=== PATIENT | female | born 1930 | race Two or more races ===

== ENCOUNTER 2016-10-29 16:43 | Inpatient (IN) | payer MEDICARE, OTHER ==
[~2016-10-29] VITALS: Ht 160 cm; Wt 62.1 kg
--- NOTE | 2016-10-29 16:45 | NUR ---
Pt roe from [facility] for increased aloc today. gowned pt. Awaiting md order. Placed on monitor. Lt wrist #20 iv access LICENSED OCCUPATIONAL THERAPY ASSISTANT
[2016-10-29] MEDS ORDERED: ACETAMINOPHEN 650 MG/SUPP.RECT RC ONE ×2 (16:54→17:00)
[2016-10-29] MEDS ORDERED: IV SET PRIMARY PUMP SET 1 EA INFUS.SET MC ONE ×3 (16:54→20:20)
[2016-10-29] MEDS ORDERED: IV NS 0.9% 1,000 ML ONE ×2 (16:54→17:59)
--- NOTE | 2016-10-29 16:54 | NUR ---
MANAGER MOTOR AT BEDSIDE FOR BLOOD DRAW
--- NOTE | 2016-10-29 16:55 | NUR ---
ONLINE MARKETING ANALYST AT BEDSIDE
[2016-10-29] MEDS ORDERED: IV NS 0.9% 1,000 ML BAG IV ONE ×2 (17:00→18:30)
--- NOTE | 2016-10-29 17:20 | NUR ---
URINE SAMPLE COLLECTED SENT TO LAB
[2016-10-29 17:24] LABS: EOSINOPHILS % (AUTO) 0.7 % (0.0-6.0); HEMATOCRIT 37 % (39-51); HEMOGLOBIN 12.5 g/dL (13.5-17.5); LYMPHOCYTES % (AUTO) 2.3 % (20.0-44.0); MEAN CORPUSCULAR HEMOGLOBIN 30 PG (26.0-33.0); MEAN CORPUSCULAR HGB CONC 34 g/dl (31.0-36.0); MEAN CORPUSCULAR VOLUME 89 fL (80-96); MONOCYTES % (AUTO) 0.1 % (2.0-12.0); NEUTROPHILS % (AUTO) 96.9 % (43.0-81.0); PLATELET COUNT (AUTO) 117 /CMM (150-450); RDW COEFFICIENT OF VARIATION 13.2 (11.5-15.0); RED BLOOD CELL COUNT(AUTO) 4.14 MIL/uL (4.5-6.0); WHITE BLOOD COUNT (AUTO) 16.3 K/uL (4.3-11.0)
[2016-10-29 17:25] LABS: EOSINOPHILS # (AUTO) 0.1 /CMM (0.0-0.7); LYMPHOCYTES # (AUTO) 0.4 /CMM (0.8-4.8); NEUTROPHILS # (AUTO) 15.8 /CMM (1.8-8.9)
[2016-10-29 17:27] LABS: CARBON DIOXIDE 19 mmol/L (21-32); CHLORIDE 106 mmol/L (98-107); CREATININE 1.8 mg/dL (0.6-1.3); GLUCOSE 161 mg/dL (74-106); POTASSIUM 3.8 mmol/L (3.5-5.1); SODIUM SERUM 139 mmol/L (136-145); UREA NITROGEN, BLOOD 35 mg/dL (7-18)
[2016-10-29 17:32] LABS: ALANINE AMINOTRANSFERASE 20 U/L (12-78); ALBUMIN 2.7 g/dL (3.4-5.0); ALKALINE PHOSPHATASE 203 U/L (46-116); ASPARTATE AMINOTRANSFERASE 27 U/L (15-37); BILIRUBIN,DIRECT 0.4 mg/dL (0.0-0.2); TOTAL PROTEIN, SERUM 5.9 g/dL (6.4-8.2)
--- NOTE | 2016-10-29 17:33 | NUR ---
CALLED NURSING SUP. FOR ROBBIN BED
[2016-10-29 17:36] LABS: TROPONIN I 0.066 ng/mL (0.00-0.056)
[2016-10-29 17:40] LABS: INR 1.49 (0.87-1.13); PROTHROMBIN TIME 16.3 SECS (9.5-12.7)
[2016-10-29 17:41] LABS: APPEARANCE,URINE Turbid (CLEAR); BILIRUBIN,URINE Negative (NEGATIVE); BLOOD, URINE Moderate Ery/uL (NEGATIVE); COLOR,URINE Yellow (YELLOW); KETONES,URINE Negative (NEGATIVE); LEUKOCYTE ESTERASE ,URINE Small (NEGATIVE); NITRITE, URINE Positive (NEGATIVE); PROTEIN,URINE 100 mg/dl (NEGATIVE); UGLUCOSE Negative (NEGATIVE)
[2016-10-29 17:48] LABS: RBC,URINE B /HPF (0-2)
[2016-10-29 17:49] LABS: BACTERIA,URINE Many /HPF (None Seen); SQUAMOUS EPITHELIAL CELL,UR FEW /HPF (None Seen)
--- NOTE | 2016-10-29 17:53 | NUR ---
CALLED , LEFT MESSAGE ON VOICEMAIL
[2016-10-29] MEDS ORDERED: CEFTRIAXONE 1GM BAG (ER ONLY) 50 ML IV ONE ×2 (17:58→18:00)
[2016-10-29] MEDS ORDERED: IV SET PRIMARY 1 EA INFUS.SET MC ONE (17:59)
[2016-10-29] MEDS ORDERED: POTA20TA83 PO (18:02)
[2016-10-29] MEDS ORDERED: DOCU-25 PO (18:02)
[2016-10-29] MEDS ORDERED: NA P133E RC (18:02)
[2016-10-29] MEDS ORDERED: BISA10SU8 RC (18:02)
[2016-10-29] MEDS ORDERED: IPRA3AMP NEB (18:02)
[2016-10-29] MEDS ORDERED: FURO-145 PO (18:02)
[2016-10-29] MEDS ORDERED: MAGN400O6 PO (18:02)
--- NOTE | 2016-10-29 18:19 | NUR ---
GAVE REPORT TO BISMARK DYSON ROBBIN . DR PRINCE ADMITTING. DX SEPSIS WITH UTI. TRANSFER VIA ACLS PROTOCOL.
--- NOTE | 2016-10-29 18:27 | NUR ---
IV INFUSING DURING TRASNSFER
[2016-10-29] MEDS ORDERED: FEE PK DOSING 1 MIN EA MC ONE (18:52)
[2016-10-29] MEDS ORDERED: ONDANSETRON HCL/PF 4 MG/2 ML VIAL IV PRN (19:00)
[2016-10-29] MEDS ORDERED: ACETAMINOPHEN 650 MG/SUPP.RECT RC PRN (19:00)
[2016-10-29 19:11] VITALS: BP 111/38
--- NOTE | 2016-10-29 19:16 | NUR ---
ROBBIN RN NOTE RECEIVED PATIENT FRO ER WITH DX UTI ,SEPSIS, ALERT TO SELF, FAMILY AT BEDSIDE , PLACED ON TELE MONITOR ST 118 , BP TAKEN , ALL NEEDS ATTENDED , HOSPITAL,ORIENTATION DONE, BED IN ,LOWEST AND ,LOCKED POSITIONS , ADMISSION ORDERS CARRIED OUT,FAXED TO,PHARMACY , PLACED ON O2 SAT 95% WILL ENDORSE CARE TO NEXT SHIFT RN
[2016-10-29] MEDS: PANTOPRAZOLE 40 MG VIAL IV SCH (19:46)
[2016-10-29 20:00] VITALS: BP 81/42
[2016-10-29 20:06] VITALS: BP 81/42
[2016-10-29] MEDS: ZOSYN IVPB 3.375 G in IV D5W 50ml IV SCH (20:21)
[2016-10-29] MEDS: VANCOMYCIN 500 MG in IV D5W 100 ML IV SCH (20:21)
[2016-10-29] MEDS: IV NS 0.9% 1,000 ML IV PRN (20:22)
[2016-10-29] MEDS ORDERED: IV NS 0.9% 500 ML IV ONE ×2 (20:30)
[2016-10-29] MEDS ORDERED: IV NS 0.9% 500 ML IV PRN (21:00)
[2016-10-29] MEDS ORDERED: ENOXAPARIN SODIUM 30 MG/0.3 ML DISP.SYRIN SQ SCH (21:00)
--- NOTE | 2016-10-29 21:35 | NUR ---
RN;TD: PT RECEIVED FROM ED FOR SEPSIS SECONDARY TO UTI. PT BP LOW 80'S. SPOKE WITH MD REGARDING PT CODE STATUS DNR/DNI AND LOW BP. NEW ORDERS FOR 500 ML NS BOLUS, MAY REPEAT X 1 IF BP REMAINS LOW. NEW IV INSERTED RIGHT FA 22 GAUGE. SPOKE WITH FAMILY REGARDING POC AND CODE STATUS. SKIN INTACT. FALL AND ASPIRATION PRECAUTIONS IN PLACE. O2 PLACED ON AT 2L. FC INSERTED PER MD ORDERS WITH MINIMAL CALDERON URINE OUTPUT. WILL CONTINUE TO MONITOR CLOSELY. PATIENTS DAUGHTER PHONE NUMBER [phone], .
[2016-10-29 22:00] VITALS: BP 98/44
--- NOTE | 2016-10-29 22:00 | NUR ---
RN;TD: PT BP RESPONDED WELL TO FIRST BOLUS. SBP 98. WILL CONTINUE TO MONITOR CLOSELY.
[2016-10-30] VITALS (7 sets, daily range): BP systolic 83–116; BP diastolic 44–59
--- NOTE | 2016-10-30 00:02 | NUR ---
RN:TD: PT BP 60'S THEN 80'S WHEN RECHECKED. SECOND BOLUS GIVEN PER MD ORDERS. WILL REASSESS BP AFTER BOLUS INFUSED.
--- NOTE | 2016-10-30 01:00 | NUR ---
RN;TD: PT BP RETURNED TO NORMAL 90'S. U/O REMAINS LOW, MD AWARE. RIGHT FA IV SITE REMAINS INTACT. RIGHT FA BRUISE DOCUMENTED IN SKIN ASSESSMENT PORTION OF ROBBIN FLOW SHEET. PICTURES TAKEN. OTHERWISE SKIN INTACT.
[2016-10-30] MEDS: ZOSYN IVPB 3.375 G in IV D5W 50ml IV SCH ×2 (01:13→07:50)
[2016-10-30] MEDS: IV NS 0.9% 1,000 ML IV PRN ×3 (01:14→17:11)
--- NOTE | 2016-10-30 07:20 | NUR ---
RN INITIAL NOTES PT IN BED, ADVANCED DEMENTIA, PT OPENS EYES BUT DOES NOT RESPOND, WITHDRAWS TO PAIN. ON NC 3L, TOLERATING WELL, ON TELE MONITOR WITH ST 119, NO SIGNS OF DISTRESS NOTED. PT HAS F/C DRAINING CLEAR YELLOW URINE. PT HAS A RFA BRUISE, OPEN TO AIR. PT IS NPO D/T AMS. IV ON RFA 22G RUNNING NS @ 125 CC/HR, TOLERATING WELL; LEFT WRIST 20G CDI, NO SIGNS OF INFECTION/INFILTRATION. CALL LIGHT WITHIN EASY REACH, SAFETY MEASURES MAINTAINED, WILL CONTINUE TO MONITOR AND FOLLOW MD ORDERS. PT IN OVERALL STABLE CONDITION. Addendum: 10/30/16 at 1504 by ISAAK RIVERS RN NOTES AMENDED: F/C DRAINING DARK CALDERON URINE.
[2016-10-30 07:29] LABS: HEMATOCRIT 34 % (33-45); HEMOGLOBIN 11.3 g/dL (11.5-14.8); LYMPHOCYTES # (AUTO) 1.3 /CMM (0.8-4.8); LYMPHOCYTES % (AUTO) 4.2 % (20.0-44.0); MEAN CORPUSCULAR HEMOGLOBIN 30 PG (26.0-33.0); MEAN CORPUSCULAR HGB CONC 34 g/dl (31.0-36.0); MEAN CORPUSCULAR VOLUME 91 fL (82-100); MONOCYTES # (AUTO) 1.6 /CMM (0.1-1.30); NEUTROPHILS # (AUTO) 28.9 /CMM (1.8-8.9); NEUTROPHILS % (AUTO) 90.8 % (43.0-81.0); PLATELET COUNT (AUTO) 97 /CMM (150-450); RDW COEFFICIENT OF VARIATION 13.6 (11.5-15.0); RED BLOOD CELL COUNT(AUTO) 3.74 MIL/uL (4.0-5.2)
[2016-10-30 07:34] LABS: WHITE BLOOD COUNT (AUTO) 31.8 K/uL (4.3-11.0)
--- NOTE | 2016-10-30 07:39 | NUR ---
RN NOTES DR. PRINCE IS AWARE OF PTS WBC COUNT. NO NEW ORDERS.
[2016-10-30] MEDS ORDERED: SECONDARY IV SET 1 EA INFUS.SET MC ONE ×2 (07:44→20:48)
[2016-10-30 08:17] LABS: ALANINE AMINOTRANSFERASE 20 U/L (12-78); ALBUMIN 2.2 g/dL (3.4-5.0); ALKALINE PHOSPHATASE 62 U/L (46-116); ASPARTATE AMINOTRANSFERASE 31 U/L (15-37); BILIRUBIN,TOTAL 0.5 mg/dL (0.2-1.0); CALCIUM, SERUM 7.7 mg/dL (8.5-10.1); CARBON DIOXIDE 17 mmol/L (21-32); CHLORIDE 112 mmol/L (98-107); CREATININE 1.9 mg/dL (0.6-1.3); GLUCOSE 104 mg/dL (74-106); POTASSIUM 4.3 mmol/L (3.5-5.1); SODIUM SERUM 143 mmol/L (136-145); TOTAL PROTEIN, SERUM 5.3 g/dL (6.4-8.2); UREA NITROGEN, BLOOD 36 mg/dL (7-18)
[2016-10-30 08:48] LABS: BAND % (MANUAL) 12 % (0.0-5.0); LYMPHOCYTES % (MANUAL) 8 % (16-48); MONOCYTES % (MANUAL) 5 % (0-11.0); NEUTROPHILS % (MANUAL) 75 (42-76)
[2016-10-30] MEDS: ZOSYN IVPB 2.25 G in IV D5W 50ml IV SCH ×3 (12:55→23:58)
--- NOTE | 2016-10-30 15:14 | NUR ---
RN NOTES MD MADE AWARE OF PTS URINE CHANGING FROM DARK CALDERON TO BLOOD, ORDER GIVEN TO HOLD/DC LOVENOX. OVERALL PT IN STABLE CONDITION.
[2016-10-30] MEDS: PANTOPRAZOLE 40 MG VIAL IV SCH (18:00)
--- NOTE | 2016-10-30 19:06 | NUR ---
RN CLOSING NOTES PT IN STABLE CONDITION, ALL MD ORDERS CARRIED OUT, TOLERATING NC 3L WELL, IV'S CDI, NO SIGNS OF INFECTION/INFECTION. CALL LIGHT WITHIN EASY REACH, SAFETY MEASURES MAINTAINED, REPORT GIVEN TO NIGHT NURSE FOR DENA. Addendum: 10/30/16 at 1909 by ISAAK RIVERS RN F/C STILL DRAINING BLOODY URINE.
--- NOTE | 2016-10-30 20:00 | NUR ---
RN INITIAL NOTES PT IN BED, ADVANCED DEMENTIA, PT OPENS EYES BUT DOES NOT RESPOND, WITHDRAWS TO PAIN. ON NC 3L, TOLERATING WELL, ON TELE MONITOR WITH ST 108, NO SIGNS OF DISTRESS NOTED. PT HAS F/C DRAINING DARK CALDERON URINE. PT HAS A RFA BRUISE, OPEN TO AIR. PT IS NPO D/T AMS. IV ON RFA 22G RUNNING NS @ 125 CC/HR, TOLERATING WELL; LEFT WRIST 20G CDI, NO SIGNS OF INFECTION/INFILTRATION. CALL LIGHT WITHIN EASY REACH, SAFETY MEASURES MAINTAINED, WILL CONTINUE TO MONITOR AND FOLLOW MD ORDERS. PT IN OVERALL STABLE CONDITION.
[2016-10-30] MEDS: VANCOMYCIN 500 MG in IV D5W 100 ML IV SCH (20:50)
[2016-10-31] VITALS (11 sets, daily range): BP systolic 103–153; BP diastolic 49–75
[2016-10-31] MEDS: IV NS 0.9% 1,000 ML IV PRN ×2 (03:42→13:16)
[2016-10-31] MEDS: ZOSYN IVPB 2.25 G in IV D5W 50ml IV SCH ×3 (05:11→17:02)
[2016-10-31 06:59] LABS: CALCIUM, SERUM 8.4 mg/dL (8.5-10.1); CARBON DIOXIDE 17 mmol/L (21-32); CHLORIDE 115 mmol/L (98-107); CREATININE 1.6 mg/dL (0.6-1.3); GLUCOSE 68 mg/dL (74-106); POTASSIUM 3.8 mmol/L (3.5-5.1); SODIUM SERUM 145 mmol/L (136-145); UREA NITROGEN, BLOOD 31 mg/dL (7-18)
--- NOTE | 2016-10-31 07:44 | NUR ---
ADVANCE AGENT INITIAL NOTES PT IN BED RESTING, ADVANCED DEMENTIA, PT OPENS EYES SPONTANEOUSLY BUT DOES NOT RESPOND, WITHDRAWS TO PAIN. ON NC 3L, TOLERATING WELL, ON TELE MONITOR, NO SIGNS OF DISTRESS NOTED. PT HAS F/C DRAINING CALDERON URINE. PT HAS A RIGHT FOREARM BRUISE, OPEN TO AIR. IV ON RFA 22G ; LEFT WRIST 20G, NO SIGNS OF INFECTION/INFILTRATION. CALL LIGHT WITHIN EASY REACH, SAFETY MEASURES MAINTAINED, WILL CONTINUE TO MONITOR AND FOLLOW MD ORDERS. PT IN OVERALL STABLE CONDITION.
[2016-10-31] MEDS: ALBUTEROL FS 2.5 MG/3 ML VIAL.NEB NEB PRN ×3 (11:37→23:46)
[2016-10-31] MEDS: IPRATROPIUM NEB FS 0.5 MG/2.5 ML AMPUL.NEB NEB PRN ×3 (11:37→23:46)
[2016-10-31] MEDS: PANTOPRAZOLE 40 MG VIAL IV SCH (18:04)
--- NOTE | 2016-10-31 18:42 | NUR ---
PARA MACHINE OPERATOR CLOSING NOTES PT IN STABLE CONDITION, ALL MD ORDERS CARRIED OUT, TOLERATING NC 3L WELL, IV CLEAN DRY AND INTACT 60 ML/HR NS. NO SIGNS OF INFECTION/INFECTION. CALL LIGHT WITHIN EASY REACH, SAFETY MEASURES MAINTAINED, REPORT GIVEN TO NIGHTSHIFT NURSE FOR CONTINUATION OF CARE
[2016-10-31] MEDS: VANCOMYCIN 500 MG in IV D5W 100 ML IV SCH (20:16)
[2016-10-31] MEDS: LORAZEPAM INJ 2 MG/ML VIAL IV PRN (20:48)
--- NOTE | 2016-10-31 21:33 | NUR ---
RN:TD: PT FAMILY MEMBER REQUESTED THAT PT RECEIVE BREATHING TX. PT HAS WHEEZES AND MILD TACHYPNEA. PT RESTLESS IN BED AND FAMILY REQUESTING THAT SHE RECEIVE MEDICATION TO CALM HER DOWN. D/W DR PRINCE REGARDING RESTLESSNESS, NEW ORDERS FOR ATIVAN RECEIVED. PT GIVEN 0.5 MG ATIVAN IV PER MD ORDERS. WILL CONTINUE TO MONITOR CLOSELY.
[2016-11-01] VITALS (7 sets, daily range): BP systolic 125–153; BP diastolic 56–91
[2016-11-01] MEDS: ZOSYN IVPB 2.25 G in IV D5W 50ml IV SCH ×2 (00:07→05:22)
[2016-11-01] MEDS: IV NS 0.9% 1,000 ML IV PRN (04:45)
[2016-11-01] MEDS: LORAZEPAM INJ 2 MG/ML VIAL IV PRN ×2 (05:27→19:46)
[2016-11-01] MEDS: ALBUTEROL FS 2.5 MG/3 ML VIAL.NEB NEB PRN ×2 (05:32→20:31)
[2016-11-01] MEDS: IPRATROPIUM NEB FS 0.5 MG/2.5 ML AMPUL.NEB NEB PRN ×2 (05:32→20:31)
--- NOTE | 2016-11-01 05:43 | NUR ---
RN:TD: PT NOTED TO BE RESTLESS AND WHEEZING. ATIVAN GIVEN PER MD ORDERS AND RT ADMIN BREATHING TX. WILL ENDORSE TO ONCOMING SHIFT. O2 SAT 95%.
[2016-11-01 06:26] LABS: MEAN CORPUSCULAR HEMOGLOBIN 30 PG (26.0-33.0); MEAN CORPUSCULAR HGB CONC 34 g/dl (31.0-36.0); RDW COEFFICIENT OF VARIATION 13.9 (11.5-15.0)
[2016-11-01 06:28] LABS: BASOPHILS % (AUTO) 0.1 % (0.0-2.0); EOSINOPHILS # (AUTO) 0.4 /CMM (0.0-0.7); EOSINOPHILS % (AUTO) 1.7 % (0.0-6.0); HEMATOCRIT 33 % (33-45); LYMPHOCYTES # (AUTO) 1.1 /CMM (0.8-4.8); LYMPHOCYTES % (AUTO) 4.2 % (20.0-44.0); MEAN CORPUSCULAR VOLUME 89 fL (82-100); MONOCYTES # (AUTO) 0.7 /CMM (0.1-1.30); MONOCYTES % (AUTO) 2.9 % (2.0-12.0); NEUTROPHILS # (AUTO) 22.9 /CMM (1.8-8.9); NEUTROPHILS % (AUTO) 91.1 % (43.0-81.0); PLATELET COUNT (AUTO) 101 /CMM (150-450); RED BLOOD CELL COUNT(AUTO) 3.68 MIL/uL (4.0-5.2); WHITE BLOOD COUNT (AUTO) 25.1 K/uL (4.3-11.0)
[2016-11-01 06:45] LABS: CALCIUM, SERUM 8.9 mg/dL (8.5-10.1); CARBON DIOXIDE 17 mmol/L (21-32); CHLORIDE 115 mmol/L (98-107); CREATININE 1.7 mg/dL (0.6-1.3); GLUCOSE 88 mg/dL (74-106); POTASSIUM 3.2 mmol/L (3.5-5.1); SODIUM SERUM 146 mmol/L (136-145); UREA NITROGEN, BLOOD 31 mg/dL (7-18)
[2016-11-01] MEDS ORDERED: LEVOFLOXACIN 500 MG /D5W 100ML 500 MG in PREMIX 1 EA IV SCH (09:00)
[2016-11-01] MEDS ORDERED: FUROSEMIDE 20 MG/2 ML VIAL IV ONE (09:00)
[2016-11-01] MEDS: CEFAZOLIN IV SCH ×2 (09:54→20:19)
[2016-11-01] MEDS: D5W IV SCH ×2 (09:54→20:19)
--- NOTE | 2016-11-01 09:55 | NUR ---
ROBBIN RN NOTE 0720: Received patient lethargic. Noted making sound, noted with crackles and wheezes during auscultation. On 3LPM of O2 via NC tolerated, kept HOB elevated. With PIVs intact. IVF infusing as ordered. Remained NPO, awaiting swallow eval. Snyder cath intact, noted with clear yellow urine drained to BSD. Afebrile at this time. 0900: S/E by Dr. Velasquez, with order of Lasix 20 x1 and changed ATBs to Ancef. 0950: Spoke with daughter via phone, given update. Patient still lethargic.
[2016-11-01] MEDS ORDERED: SECONDARY IV SET 1 EA INFUS.SET MC ONE (10:44)
[2016-11-01] MEDS: POTASSIUM CL. PREMIX PERIPHER. 50 ML IV SCH ×3 (10:48→13:12)
--- NOTE | 2016-11-01 11:00 | NUR ---
ROBBIN RN NOTE Patient back from OR, still noted with SBP 180, patient noted with nausea, Zofran given as ordered. Tried to give HTN meds PO but patient unable to tolerate. With order to resume diet prior EGD, ordered cardiac diet, will encourage for lunch. Morphine given, will monitor BP closely. Addendum: 11/01/16 at 1142 by JULIANA MANRIQUEZ RN Disregard, note for other patient.
[2016-11-01] MEDS: PANTOPRAZOLE 40 MG VIAL IV SCH (18:07)
--- NOTE | 2016-11-01 19:04 | NUR ---
RN:TD: PT RECEIVED IN BED AROUSABLE TO PAINFUL STIMULI. PT HAS WHEEZING AND CONGESTION. MD AWARE. PT DNR/DNI. WILL D/W RT REGARDING BREATHING TX. FALL AND ASPIRATION PRECAUTIONS IN PLACE.
--- NOTE | 2016-11-01 19:49 | NUR ---
RN:TD:PT RESTLESS IN BED, ATIVAN GIVEN PER MD ORDERS. PT CONTINUES WITH WHEEZING. MD AWARE. LEFT FA SKIN TEAR NOTED.
[2016-11-01] MEDS ORDERED: VANCOMYCIN 0.75 GM in IV D5W 250 ML IV SCH (20:00)
[2016-11-02] VITALS (7 sets, daily range): BP systolic 117–137; BP diastolic 54–75
[2016-11-02] MEDS: IV NS 0.9% 1,000 ML IV PRN (02:26)
[2016-11-02] MEDS: LORAZEPAM INJ 2 MG/ML VIAL IV PRN (03:32)
--- NOTE | 2016-11-02 03:47 | NUR ---
rn:td: pt extremely restless in bed, ativan given per md orders. will continue to monitor closely.
[2016-11-02 06:28] LABS: EOSINOPHILS # (AUTO) 0.7 /CMM (0.0-0.7); EOSINOPHILS % (AUTO) 5.7 % (0.0-6.0); HEMATOCRIT 32 % (33-45); HEMOGLOBIN 10.7 g/dL (11.5-14.8); LYMPHOCYTES # (AUTO) 0.7 /CMM (0.8-4.8); LYMPHOCYTES % (AUTO) 5.6 % (20.0-44.0); MEAN CORPUSCULAR HEMOGLOBIN 30 PG (26.0-33.0); MEAN CORPUSCULAR HGB CONC 34 g/dl (31.0-36.0); MEAN CORPUSCULAR VOLUME 90 fL (82-100); MONOCYTES # (AUTO) 0.6 /CMM (0.1-1.30); MONOCYTES % (AUTO) 5.3 % (2.0-12.0); NEUTROPHILS # (AUTO) 10.1 /CMM (1.8-8.9); NEUTROPHILS % (AUTO) 83.4 % (43.0-81.0); PLATELET COUNT (AUTO) 99 /CMM (150-450); RDW COEFFICIENT OF VARIATION 13.9 (11.5-15.0); RED BLOOD CELL COUNT(AUTO) 3.53 MIL/uL (4.0-5.2); WHITE BLOOD COUNT (AUTO) 12.2 K/uL (4.3-11.0)
[2016-11-02 07:02] LABS: CALCIUM, SERUM 8.6 mg/dL (8.5-10.1); CARBON DIOXIDE 18 mmol/L (21-32); CHLORIDE 117 mmol/L (98-107); CREATININE 1.8 mg/dL (0.6-1.3); GLUCOSE 75 mg/dL (74-106); MAGNESIUM 1.5 mg/dL (1.8-2.4); POTASSIUM 3.6 mmol/L (3.5-5.1); SODIUM SERUM 149 mmol/L (136-145); UREA NITROGEN, BLOOD 27 mg/dL (7-18)
[2016-11-02 07:46] LABS: EOSINOPHILS % (MANUAL) 5 % (0-4); LYMPHOCYTES % (MANUAL) 3 % (16-48); MONOCYTES % (MANUAL) 3 % (0-11.0); NEUTROPHILS % (MANUAL) 89 (42-76)
--- NOTE | 2016-11-02 07:54 | NUR ---
ROBBIN RN NOTE: RECEIVED PATIENT IN BED, LETHARGIC RESPONSIVE TP PAINFUL STIMULI. PATIENT ON 3L 02 VIA NC, NO DISTRESS NOTED. SINUS TACHYCARDIC ON TELE MONITOR HR 107. PATIENT NOTED WITH RESPIRATORY CONGESTION AND WHEEZING WITH PRN BREATHING TREATMENTS. RWRIST 22G RUNNING NS AT 60ML/HR IV PATENT AND INTACT, NO INFILTRATION OR SWELLING NOTED. PATIENT NOTED WITH DIAPER, CLEAN AND DRY, TURNED AND REPOSITIONING AND EXTREMITIES OFFLOADED. BED ALARM ON. CALL LIGHT WITHIN REACH. CLOSE MONITORING Addendum: 11/02/16 at 0940 by DAWOOD LEPE RN VARGAS CATHETER DRAINING TO GRAVITY.
[2016-11-02] MEDS: CEFAZOLIN IV SCH (08:45)
[2016-11-02] MEDS: D5W IV SCH (08:45)
[2016-11-02] MEDS ORDERED: Magnesium 1GM/D5W 100ML PREMIX 100 ML IV SCH (11:00)
[2016-11-02] MEDS ORDERED: FUROSEMIDE 40 MG/4 ML VIAL IV ONE (11:30)
--- NOTE | 2016-11-02 19:02 | NUR ---
ROBBIN RN NOTE: PATIENT'S FAMILY AT BEDSIDE, REQUESTING FOR ATIVAN TO BE GIVEN AND PATIENT TO BE PLACED ON COMFORT MEASURES, CALL MADE TO DR. PRINCE, AND DR. TRENTON GUAMAN WHO IS COVERING DR. PRINCE. WILL AWAIT FOR FILE CLERK DATA ENTRY MD TO RECEIVE ORDERS. WILL F/U WITH FILE CLERK DATA ENTRY MD FOR COMFORT MEASURE ORDERS AND WILL ENDORSE TO FILE CLERK DATA ENTRY RN. PATIENT IN BED, ATIVAN GIVEN, PATIENT VERY AGITATED WIGGLY IN BED. ONGOING MONITORING.
--- NOTE | 2016-11-02 19:31 | NUR ---
ROBBIN RN NOTE: PATIENT'S FAMILY IS REQUESTING COMFORT MEASURES AND MORPHINE DRIP. DR. SARKAR ([employer] COVERING DR. PRINCE) WAS PAGED AND AWAITING CALL BACK, ENDORSED TO LICENSED WEIGHER RN FARHEEN AND MADE LICENSED WEIGHER CRN KTA AWARE.
--- NOTE | 2016-11-02 19:38 | NUR ---
RN NOTES: RECEIVED CALL BACK FROM DR. SARKAR AND ORDERS FOR COMFORT MEASURES ONLY, MORPHINE DRIP AND ATIVAN. ORDERS READ BACK AND VERIFIED. WILL CARRY OUT.
--- NOTE | 2016-11-02 19:45 | NUR ---
MS RN NOTES RECEIVED CALM AND QUIET AT THE MOMENT,PER REPORT BY TORY,SHE WAS JUST MEDICATED WITH ATIVAN IV FOR AGITATION.VARGAS CATH IN PLACE DRAINING YELLOWISH OUTPUT.SALINE LOCK RIGHT AC INTACT AND PATENT.WILL CONTINUE TO MONITOR STATUS.ON COMFORT MEASURES ONLY PER FAMILY REQUEST,ORDERS ALREADY OBTAIN FROM DR SARKAR.
[2016-11-02] MEDS ORDERED: IV D5W 250 ML IV ONE (19:52)
[2016-11-02] MEDS ORDERED: SET PCA INFUSE SET 1 EA INFUS.SET MC ONE (19:52)
[2016-11-02] MEDS ORDERED: LORAZEPAM INJ 2 MG/ML VIAL IV PRN (20:00)
[2016-11-02] MEDS ORDERED: IV SET PRIMARY PUMP SET 1 EA INFUS.SET MC ONE (21:44)
[2016-11-02] MEDS: MORPHINE SULFATE PF DRIP 250 MG in IV D5W 240 ML IV PRN (22:39)
--- NOTE | 2016-11-02 22:39 | NUR ---
MS RN NOTES STARTED PN TUBE BACKER MORPHINE DRIP AT 2MG /HR ORDERED FOR COMFORT MEASURES
--- NOTE | 2016-11-02 23:41 | NUR ---
MS RN NOTES PM CARE RENDERED,REPOSITION TO LEFT SIDE.
--- NOTE | 2016-11-03 01:49 | NUR ---
MS RN NOTES CALM AND QUIET AT THIS TIME.MORPHINE DRIP IN PROGRESS
[2016-11-03 04:00] VITALS: BP 110/48
--- NOTE | 2016-11-03 06:38 | NUR ---
MS RN NOTES FAIRLY RESTED,COMFORT MEASURES OBSERVED,MORPHINE DRIP IN PROGRESS,ATIVAN IV EFFECTIVE FOR HER AGITATION.WILL CONTINUE TO MONITOR STATUS.WILL ENDORSE TO DAY NURSE FOR DENA.
--- NOTE | 2016-11-03 07:19 | NUR ---
ms rn initial notes Received patient in bed, asleep, head of bed elevated, no SOB or distress noted. on 02 @ 3lpm via NC and tolerated well. IV intact and patent with IV morphine drip @ 2 mg /hr infusing well. Snyder in placed attached to drainage bag. Patient is on comfort measure. Kept patient clean and comfortable in bed, call light with in patient reach, will continue to monitor accordingly.
[2016-11-03 08:00] VITALS: BP 100/46
--- NOTE | 2016-11-03 19:21 | NUR ---
ms rn closing notes All needs provided, attended, and anticipated. Kept patient clean and comfortable in bed, call light with in patient reach, endorsed to next shift RN to continue care.
--- NOTE | 2016-11-03 19:30 | NUR ---
EXCHANGE CLERK NOTES RECEIVED PATIENT ASLEEP, NO S/S OF PAIN OR DISCOMFORT. NO RESPIRATORY DISTRESS NOTED. WITH RESPIRATIONS AT 5 BREATHS/MIN. WITH 3LPMO2 VIA NC. WITH MORPHINE DRIP AT 2MG/HR. SKIN WARM AND DRY TO TOUCH. WITH F/C PATENT AND INTACT, DRAINING BY GRAVITY. HOB ELEVATED. SIDE RAILS UP AND LOCKED. BED KEPT AT LOWEST POSITION. WILL CONTINUE TO MONITOR CLOSELY.
[2016-11-03] MEDS: MORPHINE SULFATE PF DRIP 250 MG in IV D5W 240 ML IV PRN (22:54)
--- NOTE | 2016-11-04 07:00 | NUR ---
FIRE BOSS NOTES RECEIVED PATIENT ON BED , APPEARS COMFORTABLE , RESPIRATIONS AT 5 BREATHS/MIN.02 AT 3 L N/C , ON MORPHINE DRIP AT 2MG/HR. F/C PATENT AND INTACT, DRAINING BY GRAVITY. HOB ELEVATED. SIDE RAILS UPx3, BED LOCKED AND IN LOWEST POSITION ,WILL CONTINUE TO MONITOR PT CLOSELY AND PROVIDE COMFORT CARE .
--- NOTE | 2016-11-04 07:10 | NUR ---
HOSPICE CLOSING NOTES PATIENT KEPT COMFORTABLE, NO S/S OF PAIN OR DISCOMFORT. BREATHING AT 4 BREATHS/MIN WITH 3LPMO2 VIA NC. SKIN WARM AND DRY TO TOUCH. WITH MORPHINE GTT AT 2MG/HR. WITH F/C PATENT AND INTACT, DRAINING BY GRAVITY. KEPT CLEAN AND DRY. TURNED AND REPOSITIONED Q2 AND PRN. BED KEPT AT LOWEST AND LOCKED POSITION. CONTINUITY OF CARE ENDORSED TO AM NURSE.
--- NOTE | 2016-11-04 11:00 | NUR ---
RN NOTES RESPIRATIONS AT 5 BREATHS/MIN. WITH 3LPMO2 VIA NC. WITH MORPHINE DRIP AT 2MG/HR. SKIN WARM AND DRY TO TOUCH. PT APPEARS COMFORTABLE, NO DISTRESS NOTED AT THIS TIME , CONTINUE COMFORT CARE MEASURES.
--- NOTE | 2016-11-04 14:00 | NUR ---
RN NOTES PT AT REST , WITH MORPHINE DRIP AT 2MG/HR. VIA R AC IV SITE, NON VERBAL , RESPIRATION 4 PER MINUTES . CONTINUE TO MONITOR
[2016-11-04 16:00] VITALS: BP 90/45
--- NOTE | 2016-11-04 18:15 | NUR ---
RN NOTES PT REMAIN COMFORTABLE ,NON VERBAL , RESPIRATION 3 PER MINUTES , ON MORPHINE AT 2MG /HR , SR UP x3, VARGAS WITH 30CC URIN OUTPUT ON THIS SHIFT , WILL ENDORSE TO LABELS MOLDER NURSE FOR CONTINUITY OF COMFORT CARE .
--- NOTE | 2016-11-04 20:17 | NUR ---
HOSPICE/BLOCK FEEDER PT RESTING IN BED. MORPHINE DRIP INFUSING AT 2MG/HR. PER FAMILY DO NOT DISTURB PT FOR ANY REASON. WILL CONTINUE TO MONITOR.
--- NOTE | 2016-11-05 07:15 | NUR ---
MANAGER PRODUCT DESIGN NOTES RECEIVED PATIENT ON BED , APPEARS COMFORTABLE , RESPIRATIONS AT 5 BREATHS/MIN.02 AT 3 L N/C , ON MORPHINE DRIP AT 2MG/HR. F/C PATENT AND INTACT, DRAINING BY GRAVITY. HOB ELEVATED. SIDE RAILS UPx3, BED LOCKED AND IN LOWEST POSITION ,WILL CONTINUE TO MONITOR PT CLOSELY AND PROVIDE COMFORT CARE .
--- NOTE | 2016-11-05 20:30 | NUR ---
WEB DEVELOPMENT DIRECTOR NOTES PT IS IN BED, NONVERBAL. FAMILY AT BEDSIDE, IV SITE ON R AC, FLUSHED AND PATENT, NO S/SX OF INFECTION OR INFILTRATION, ON MORPHINE DRIP. PT IS SLEEPING COMFORTABLY, NO PAIN NOTED. VARGAS IS DRAINING WITH CALDERON URINE. WILL PROVIDE COMFORT MEASURES ONLY, BED LOCKED AND IN LOWEST POSITION. WILL CONTINUE TO MONITOR.
--- NOTE | 2016-11-05 20:35 | NUR ---
HOSPICE/MANAGER FLEET REPORT TO ABIMBOLA DYSON FOR CONT OF CARE.
[2016-11-06] MEDS: MORPHINE SULFATE PF DRIP 250 MG in IV D5W 240 ML IV PRN (03:12)
--- NOTE | 2016-11-06 06:41 | NUR ---
CORRECTIONS COUNSELOR CLOSING NOTES NO SIGNIFICANT CHANGES OVERNIGHT, PROVIDED COMFORT MEASURES ON MORPHINE DRIP @26MG/HR. NO S/S OF PAIN OR DISCOMFORT. ON NASAL CANNULA 3LPMO2. SKIN WARM AND DRY TO TOUCH. PROVIDED ADLS WITH MAXIMUM ASSIST. KEPT SKIN CLEAN AND DRY, WITH F/C PATENT AND INTACT, DRAINING BY GRAVITY. TURNED AND REPOSITIONED Q2 AND PRN. BED LOCKED AND IN LOWEST POSITION. WILL ENDORSE TO AM NURSE FOR CONTINUITY OF CARE.
--- NOTE | 2016-11-06 07:15 | NUR ---
RN INITIAL NOTE PATIENT RECEIVED IN BED, APPEARS COMFORTABLE. PATIENT IS ON HOSPICE. MORPHINE DRIP RUNNING AT 2MG/HR. VARGAS CATHETER DRAINING TO GRAVITY. IV SITE FLUSHED, PATENT. BED IN LOCKED, LOW POSITION WITH TWO SIDE RAILS UP. WILL CONTINUE TO MONITOR.
--- NOTE | 2016-11-06 11:22 | NUR ---
RN CLOSING NOTE WENT FOR PATIENT ROUNDING AND FOUND SHE WAS NO LONGER BREATHING. NO PALPABLE PULSES. NO PUPILLARY REACTION. FAMILY, DOCTOR AND MORTUARY NOTIFIED.
== END 2016-11-06 11:25 | disposition expired | DRG 871 ==
LOC: ER 16:44 → EDSEX 16:44 → ER 18:25 → TELE-TD 18:37 → MEDSG1 11-02 11:03 → HOSPICE1 11-02 20:49
PROVIDERS: ADMIT Legal Medicine; ATTEND Legal Medicine
DX: A41.9 Sepsis, unspecified organism (principal); G93.41 Metabolic encephalopathy; N17.0 Acute kidney failure with tubular necrosis; J96.01 Acute respiratory failure with hypoxia; I50.33 Acute on chronic diastolic (congestive) heart failure; J69.0 Pneumonitis due to inhalation of food and vomit; N39.0 Urinary tract infection, site not specified; I13.0 Hypertensive heart and chronic kidney disease with heart failure and stage 1 through stage 4 chronic kidney disease, or unspecified chronic kidney disease; E87.0 Hyperosmolality and hypernatremia; D68.9 Coagulation defect, unspecified; Z66 Do not resuscitate; Z51.5 Encounter for palliative care; R65.20 Severe sepsis without septic shock; B96.20 Unspecified Escherichia coli [E. coli] as the cause of diseases classified elsewhere; Z16.24 Resistance to multiple antibiotics; G30.9 Alzheimer's disease, unspecified; F02.80 Dementia in other diseases classified elsewhere, unspecified severity, without behavioral disturbance, psychotic disturbance, mood disturbance, and anxiety; N18.9 Chronic kidney disease, unspecified; M19.90 Unspecified osteoarthritis, unspecified site; D69.6 Thrombocytopenia, unspecified; Z16.11 Resistance to penicillins; D64.9 Anemia, unspecified; E83.42 Hypomagnesemia; E87.6 Hypokalemia
CPT/HCPCS: 36415; 71010-TC; 76770-TC; 80048-TC; 80053-TC; 80076-TC; 80202-TC; 81000-TC; 82962-TC; 83605-TC; 83735-TC; 84484-TC; 85025-TC; 85730-TC; 87040-TC; 87086-TC; 87186-TC; 94799-TC; A4216; A4606; A6253; C9113; J0690; J0696; J1650; J1940; J1956; J2060; J2274; J2543; J3370; J3475; J3480; J7030; J7040; J7060; Z7610